=== PATIENT | female | born 1965 | race Caucasian/White ===

== ENCOUNTER → 2016-08-22 | Outpatient (CLI) | payer OTHER ==
[~2016-08-22] MED LIST: ANTIVERT PO; CELEXA20 MG PO; MIRALAX17 G2 PO; PANTOPRAZOLE SO40 MG PO; PAXIL PO; PHENERGAN PO; PRILOSEC PO; SENOKOT S1 TA1 DOB; TRAZODONE PO
--- NOTE | ~2016-08-22 | CT4 ---
[facility] A Service of [facility] RADIOLOGY TEXT RESULTS PATIENT: ASMITA KLEIN LOCATION: [facility] : 67 UNIT #: [id number] AGE: [address]: Armand Kirby MD SEX: F ORDER DR: [id number] [facility] [place], [place] [address] [id number] O MR#: [id number] [facility] #: [id number] NAME: ASMITA KLEIN. : 1965 SEX: F STUDY DATE/TIME: 08/22/2016 14:22 UNIT: [facility] ROOM: STUDY DESCRIPTION: CT Abd and Pelv Wo Cont Attending Physician: Armand Kirby M.D. Referring Physician: Armand Kirby M.D. Ordering Physician: Armand Kirby M.D. Primary Care Physician: Armand Kirby M.D. MEDICAL IMAGING REPORT This report is preliminary unless electronic signature is present EXAM CT of abdomen and pelvis without contrast. DATE 08/22/2016 HISTORY 50-year-old female, status post umbilical hernia repair years ago, now with right upper quadrant epigastric and periumbilical pain. Possible umbilical hernia. Patient states abdominal pain for 2 days. Patient stated lifting something at work. Abdomen keith. Previous history of hernia repair, section, tubal ligation. COMPARISON CT abdomen and pelvis without contrast, 02/01/2015. PROCEDURE 5 mm noncontrast axial images through the abdomen and pelvis. Enteric contrast was not administered. Sagittal and coronal reformatted images were obtained. TECHNIQUE This CT exam was performed with one or more of the following radiation dose reduction techniques: automatic exposure control, adjustment of mA and/or kV according to patient size, and iterative reconstruction. FINDINGS ABDOMEN FINDINGS: There are signs of ventral abdominal hernia repair, without evidence of hernia recurrence. Limited evaluation of bowel without benefit of enteric contrast. No focal bowel inflammation is seen. No free air or free fluid is identified. Lung bases appear free of consolidation. The liver, gallbladder, spleen, [facility] A Service of [facility] RADIOLOGY TEXT RESULTS PATIENT: ASMITA KLEIN LOCATION: [facility] : 67 UNIT #: [id number] AGE: [address]: Armand Kirby MD SEX: F ORDER DR: pancreas, adrenals and kidneys have a normal noncontrast appearance. No urinary tract stone or hydronephrosis is evident. The appendix is visualized and appears normal. PELVIS FINDINGS: There is a somewhat generally bulky appearance of the uterus with somewhat prominent posterior uterine fundal myometrium. No discrete lesion is identified, but underlying uterine fibroid could be considered. Left ovarian cyst or cystic lesion measures 2.5 cm. No pelvic free fluid. Urinary bladder and rectum are normal. Probable sebaceous cyst in the left buttock region measures 2.8 cm and is new since the 02/01/2015 exam. Left L4-5 and L5-S1 facet arthropathy without acute or suspicious osseous abnormality. IMPRESSION 1. No acute findings in the abdomen or pelvis. No CT explanation for the patient's abdominal pain. 2. Features of ventral abdominal hernia repair without hernia recurrence. 3. Prominent posterior uterine fundal myometrium. No discrete lesion is seen on this examination. If there is clinical concern for underlying uterine fibroid, this would be better evaluated with pelvic ultrasound. 4. Left ovarian cyst, 2.5 cm. 5. Probable sebaceous cyst in the left buttock region measuring 2.8 cm, a new finding since 2014. 6. Normal appendix. 7. No urinary tract stone or hydronephrosis. Dictated by... Chiquita Escudero M.D. THIS IS AN ELECTRONICALLY VERIFIED REPORT Chiquita Escudero M.D. at 08/23/2016 2:23 PM NELDA/casey TD: 08/22/2016 18:26 JOB #: [id number] MEDICAL IMAGING REPORT Page 1 of 1 COPY
== END | disposition home or self-care (01) ==
LOC: CCAT 13:04
DX: R10.9 Unspecified abdominal pain (principal); N83.202 Unspecified ovarian cyst, left side; Z98.890 Other specified postprocedural states
CPT/HCPCS: 74176

== ENCOUNTER → 2016-09-02 | Outpatient (CLI) | payer OTHER ==
--- NOTE | ~2016-09-02 | US98 ---
[facility] A Service of [facility] RADIOLOGY TEXT RESULTS PATIENT: ASMITA KLEIN LOCATION: [facility] : 67 UNIT #: [id number] AGE: [address]: Armand Kirby MD SEX: F ORDER DR: [id number] [facility] [address] [place], [place] [address] [id number] O MR#: [id number] Acc #: [id number] NAME: ASMITA KLEIN. : 1965 SEX: F STUDY DATE/TIME: 09/02/2016 14:57 UNIT: [facility] ROOM: STUDY DESCRIPTION: US Pelvic Non-OB Complete Attending Physician: Armand Kirby M.D. Ordering Physician: Armand Kirby M.D. Primary Care Physician: Armand Kirby M.D. MEDICAL IMAGING REPORT This report is preliminary unless electronic signature is present EXAM Pelvic ultrasound, transabdominal and transvaginal technique, 09/02/2016 INDICATIONS 50-year-old female with abdominal pain right lower quadrant pain for a couple weeks. Abnormal CT scan 08/17 08/14 demonstrating probable fibroids. TECHNIQUE Sonographic imaging of the pelvis was performed transabdominally and transvaginally for better evaluation of the adnexa and ovarian structures. COMPARISON None. Correlation is made with CT 08/22/2016. FINDINGS TRANSABDOMINAL IMAGING: The uterus is not well visualized transabdominally and better characterized transvaginally. It measures about 9.6 cm long axis. Neither ovary was identified transabdominally. TRANSVAGINAL IMAGING: The uterus measures 10.8 x 6 x 6 cm. There may be a trace amount of free fluid in the pelvic cul-de-sac. Endometrial stripe measures approximately 5 mm, within the normal range. There is a dominant fibroid near the level of the uterine fundus posteriorly measuring 4.3 x 3.7 cm. No additional fibroid or other uterine mass identified. This appears to represent an intramural fibroid. The right ovary was not identified. The left ovary measures about 2.7 cm long axis. There is a dominant follicle on the left ovary measuring up to 2 cm. The left ovary demonstrates good flow. [facility] A Service of [facility] RADIOLOGY TEXT RESULTS PATIENT: ASMITA KLEIN LOCATION: [facility] : 67 UNIT #: [id number] AGE: [address]: Armand Kirby MD SEX: F ORDER DR: IMPRESSION 1. Dominant fibroid near the fundus posteriorly measures up to 4.3 cm. The uterus is otherwise unremarkable. 2. The right ovary was not visualized. The left appears unremarkable. Dictated by... Karlos Saab M.D. THIS IS AN ELECTRONICALLY VERIFIED REPORT Karlos Saab M.D. at 09/03/2016 2:17 PM ARNULFO/katrin TD: 09/02/2016 21:21 JOB #: [id number] MEDICAL IMAGING REPORT Page 1 of 1 COPY
== END | disposition home or self-care (01) ==
LOC: CWCC 14:32
DX: R10.9 Unspecified abdominal pain (principal); D25.9 Leiomyoma of uterus, unspecified
CPT/HCPCS: 76830; 76856